=== PATIENT | male | born 1985 | race African-American/Black ===

== ENCOUNTER 2020-01-28 21:16 | Emergency (ER) | payer MEDICAID ==
[~2020-01-28] VITALS: Ht 177.8 cm; Wt 68.0 kg
[2020-01-28 21:17] VITALS: BP 128/84
[2020-01-29] MEDS ORDERED: ACETAMINOPHEN 325MG TABLET PO ONE
== END 2020-01-29 02:18 | disposition home or self-care (01) ==
LOC: ER 21:16
DX: U07.1 COVID-19 (principal)
CPT/HCPCS: 87635; 93005; 99283